=== PATIENT | male | born 1960 | race Caucasian/White ===

== ENCOUNTER 2018-01-01 10:00 | Inpatient (IN) | payer OTHER, MEDICARE, SELFPAY ==
[2017-12-19 12:53] VITALS: BMI 38.3
[2018-01-01] VITALS (17 sets, daily range): BP systolic 124–177; BP diastolic 75–114; PULSE 62–104; RESP 10–20; TEMP 36.3–37.4; O2SAT 91–97; BMI 36.8
--- NOTE | 2018-01-01 11:57 | PM.PREOP ---
Pre-operative Note Interval Note Pre-op Check: Yes History & Physical Reviewed by Physician, Yes Exam Performed and Yes History & Physical exam performed today by Physician Changes: No
[2018-01-01] MEDS: LACTATED RINGERS 1,000 ML 42 ML IV ×3 (12:18→15:40)
[2018-01-01] MEDS: MIDAZOLAM 2 MG/2 ML VIAL IV (12:29)
[2018-01-01] MEDS: fentaNYL 100 MCG/2 ML INJ 50 MCG IV (12:39)
[2018-01-01] MEDS: CEFAZOLIN 2 GM/100 ML FROZ.PIGGY IV ×2 (12:55→20:17)
--- NOTE | 2018-01-01 13:37 | SUR.OPER ---
Supine, head on gel donut. Arms padded with gel pads, tucked at sides, towel roll under shoulders. Safety belt at thigh. Legs uncrossed. tape placed to shoulders bilaterally and secured at foot of table on each side.
--- NOTE | 2018-01-01 15:51 | DI.RAD.S_ITS ---
PROCEDURE: XR CERVICAL SPINE 2V OR 3V INDICATIONS: C3-4-5-6 ACDF TECHNIQUE: 2 view(s) of the cervical spine were acquired. COMPARISON: None. FINDINGS: Bones: Immediate postprocedural evaluation after what appears to have been anterior discectomy and anterior fusion plating with bilateral transverse vertebral body cancellous screws crossing C3-C6 establishing normal alignment. Soft tissues: No prevertebral soft tissue swelling. IMPRESSION: Normal anatomic alignment established after anterior discectomy, interbody disc prosthesis placement, and anterior fusion plating from C3-C6. Dictated by: Huey Schaeffer M.D. on 01/01/2018 at 16:15 Approved by: Huey Schaeffer M.D. on 01/01/2018 at 16:16
[2018-01-01] MEDS: LORazepam 2 MG/ML SYRINGE 0.5 MG IV (15:55)
--- NOTE | 2018-01-01 16:04 | P.OP_ITS ---
Operative Date/Time/Diagnoses Date of procedure: 01/01/18 Time of procedure: 12:00 Pre-op diagnosis: 1. C3-4, C4-5, C5-6 spinal stenosis 2. C3-4, C4-5, C5-6 spondylosis with radiculopathy Post-op diagnosis: same Procedure & Clinicians Procedure: 1. C3-4, C4-5, C5-6 anterior cervical diskectomy and fusion 2. C3-4, C4-5, C5-6 anterior interbody cage placement 3. C3-4, C4-5, C5-6 anterior instrumentation with plate and screw placement in C4-C5-C6 and C7 vertebrae 4. Utilization of microsurgical technique and operating microscope Same procedure as scheduled: Yes Indications: Patient has been having chronic neck pain and worsening cervical radiculopathy. Patient failed multiple conservative management with worsening pain weakness and numbness in her upper extremity. Patient has been having difficulty performing activity of daily living. After discussing risks benefits of treatment options, patient elected proceed with surgery. Surgeon: Soraya Merchant [employer] Operator: Eliane Mendoza Click Yes if Unassisted: No Anesthesia Type: General Operative Notes Closure Type: primary Implants & Drains: Globus extend plate, PEEK cages Estimated Blood Loss (mL): 50 Blood products transfused: none Procedure in detail: Patient was seen in the preoperative area. Risks and benefits of the surgery was discussed with the patient. Operative consent was obtained and placed in the chart. Patient was then taken to the operative room. Prophylactic antibiotic was given less than 0.5 hr prior to skin incision. General anesthesia was administered. Patient was placed into a supine position on her radiolucent table. Bilateral shoulders were taped down to allow proper C-arm imaging. Anterior cervical area was prepped and draped in a sterile fashion. Time-out was performed at this time. Using lateral C-arm imaging, the level between C3 and C6 was identified and marked on patient's neck. A oblique incision from midline towards medial border of sternocleidomastoid muscle was made. The platysma muscle was incised in line with skin incision. Metzenbaum scissor was used to develop the plane between the medial border of sternocleidomastoid d and the strap muscles medially. The carotid sheath and its contents were identified and protected behind the hand- held retractor during the entire case. The plane between the carotid sheath and strap muscles was developed with Metzenbaum scissors. Dissection was made down to the level of the anterior cervical fascia. Longus colli muscle was incised on the anterior aspect of vertebral bodies bilaterally from C3-6. Spinal needle was placed into the C4-5 disc space and confirmed with lateral C-arm imaging. Using microsurgical technique and operative microscope, anterior cervical diskectomy was performed at C3-4, C4-5, C5-6 level. This was done by removing the disc material, removing the anterior and posterior osteophytes posterior longitudinal ligaments along with performing bilateral foraminotomies at all 3 levels. Patient was found to have severe central and foraminal stenosis at all 3 levels. Patient's stenosis was fully decompressed after decompression was completed. After the diskectomy was completed, 3 anterior interbody cages were obtained. The cages were packed with globus via cell bone grafting material. One cage each along with the bone grafting material was then packed into the interbody spaces from C3-6 with one cage into each interbody level. After the cages were placed, the anterior cervical plate was stabilized to the C3-4, C4-5, C5-6 vertebrae using 2 screws at each each level. Total 8 screws were placed. After confirming placement of the hardware with AP and lateral C- arm imaging, the screws were locked into the plate using the locking mechanism and torque limiting screwdriver. After the hardware was placed and confirmed with AP and lateral C-arm imaging, the wound was irrigated with sterile normal saline. The platysma muscle and the subcutaneous tissue was closed with 2-0 Vicryl. The skin was closed with 4- 0Monocryl and Steri-Strips. Patient tolerated the procedure well. Patient was transferred recovery room in stable condition. There were no complications. Complications: none Condition: stable Disposition: PACU Plan for aftercare: Admit to inpatient hospital
[2018-01-01] MEDS: HYDROMORPHONE 2 MG INJ 0.5 MG IV ×2 (16:10→16:22)
[2018-01-01] MEDS: LABETALOL 20 MG/4 ML SYRINGE 10 MG IV (16:33)
[2018-01-01] MEDS: SODIUM CHLORIDE 0.9% 1,000 ML 100 ML IV (17:20)
[2018-01-01] MEDS: HYDROMORPHONE 1 MG INJ 0.5 MG IV (17:21)
[2018-01-01] MEDS: OXYCODONE IR 5 MG TABLET 10 MG PO ×2 (18:38→22:37)
[2018-01-01] MEDS: ATORVASTATIN 10 MG TABLET PO (19:07)
[2018-01-01] MEDS: AMLODIPINE 5 MG TABLET PO (19:07)
[2018-01-01] MEDS: DOXAZOSIN 4 MG TABLET PO (19:08)
[2018-01-01] MEDS: DOCUSATE 100 MG CAPSULE PO (19:08)
[2018-01-01] MEDS: EPLERENONE 25 MG TABLET 100 MG PO (19:09)
[2018-01-01] MEDS: LISINOPRIL 20 MG TABLET 40 MG PO (19:09)
[2018-01-01] MEDS: SENNOSIDES 8.6 MG TABLET 17.2 MG PO (19:10)
[2018-01-02] MEDS: HYDROMORPHONE 1 MG INJ 0.5 MG IV ×3 (00:57→07:04)
[2018-01-02] MEDS: hydrOXYzine pamoate 25 MG CAPSULE PO ×3 (01:01→13:21)
[2018-01-02] MEDS: CEFAZOLIN 2 GM/100 ML FROZ.PIGGY IV (03:58)
[2018-01-02 04:01] VITALS: BP 156/87; PULSE 85; RESP 18; TEMP 36.9; O2SAT 94
--- NOTE | 2018-01-02 05:58 | PC.NURSE ---
Assumed care of pt from outgoing shift at 2300 8-27. Pt asleep at this time, belongings and call light within reach. will continue to monitor. 0030- pt awake, complains of pain, meds given. tolerated nursing assessments. uses call light. complains he cant fall asleep, Vistaril given as pt stated his neck and back muscles just felt so tight. pt stated he did get relief from this. PT turned phone on to use for white noise. Pt's questions answered. 0400- pt accidentally pulled out IV while toileting. new IV started, diluadid given. pt back to bed. will continue to monitor.
[2018-01-02 06:16] LABS: Hematocrit 41.5 % (41-53); Hemoglobin 14.2 g/dL (13.5-17.5)
--- NOTE | 2018-01-02 07:39 | PC.NURSE ---
Addendum entered by Sarah Mckenzie R.N. 01/02/18 09:30: Medicated (approx 0900) with Tylenol, Oxycodone and Vistaril for 6/10 neck pain. Patient wanted to try and sleep for a little bit. Resting quietly in bed now. Eyes closed, respirations regular and unlabored, CPAP in place. No s/sx distress or discomfort. Pain 0 on FLACC scale. Call light in reach. Original Note: Shift summary: Awake and alert, oriented X3. Up in room independently or with SBA, gait steady. Reports numbness/tingling in L fingers, but states this is actually improved compared to before surgery. Denies any other paresthesias. Dressing to anterior neck C/D/I, soft collar in place. Denies N/V or trouble swallowing. BT+, abdomen soft. Denies dysuria. Plan is to possibly d/c later today assuming things with therapy go well and pain is controlled with PO meds. Able to make needs known, call light in reach.
[2018-01-02 08:01] VITALS: BP 161/99; PULSE 86; RESP 16; TEMP 36.6; O2SAT 96
[2018-01-02] MEDS: DOCUSATE 100 MG CAPSULE PO (08:53)
[2018-01-02] MEDS: SODIUM CHLORIDE 0.9% FLUSH 10 ML IV (08:54)
[2018-01-02] MEDS: ACETAMINOPHEN 325 MG TABLET 650 MG PO ×2 (08:54→13:21)
[2018-01-02] MEDS: OXYCODONE IR 5 MG TABLET 10 MG PO ×2 (08:59→11:52)
--- NOTE | 2018-01-02 10:55 | PT.IIE ---
Current Diagnoses Other spondylosis with radiculopathy, cervical region (01/01/18) Spinal stenosis, cervical region (01/01/18) Postlaminectomy syndrome, not elsewhere classified (01/01/18) Surgery Performed Operation Date: 01/01/18 12:45 Actual Procedures p C3-4, C4-5, C5-6 ACDF w/Anterior Instru.(Not Applicable) - Soraya Merchant MD Surgical History (Last Updated 12/19/17 @ 15:09 by Brandi Loza RN) History of arthroscopy of left shoulder (Acute) History of carpal tunnel surgery of left wrist (Acute) Hx of laminectomy (Acute) Hx of shoulder surgery (Acute) Hx of sinus surgery (Acute) Medical History (Last Updated 12/19/17 @ 13:38 by Brandi Loza RN) Arthritis (Acute) Chronic chest pain (Acute) DJD (degenerative joint disease) of cervical spine (Acute) Depression (Acute) HTN (hypertension) (Acute) Hyperlipidemia (Acute) Pain (Acute) Palpitations (Acute) Prostate cancer (Acute) Sleep apnea with use of continuous positive airway pressure (CPAP) (Acute) Physical Therapy Inpatient Evaluation/Re-Eval Subjective Physical Therapy Visit Type Type Initial Evaluation Visit Start Time 09:15 Visit Stop Time 09:35 Total Visit Minutes 20 Physical Therapy Visit Comments Patient Comments Pt reports doing well, has no concerns about his mobility or ADLs once he's out of the hospital. Would really like some exercises to do. Therapy Pain Assessment Pain When Pain Assessed At Rest Pain Present Pain Present Denied Pain PT-Bed Mobility Assessment Supine to Sit Supine to Sit Standby Assistance Sit to Supine Sit to Supine Independent PT-Transfer Assessment Sit to and From Stand Sit to and from Stand Independent Equipment Transfer Assistive Device None Transfer Ability Level of Assist Independent Gait Assessment Gait Gait Assistance Required: Independent Distance (Feet) (feet) 200 Assistive Devices Assistive Device None Gait Deviations General Gait Pattern Within Normal Limits Stair Climbing Assessment Evaluation Level of Assist On Stairs Independent PT-Balance Assessment Sitting Balance and Reactions Static Sitting Balance Ability Normal Dynamic Sitting Balance Ability Normal Standing Balance and Reactions Static Standing Balance Ability Normal Dynamic Standing Balance Ability Normal Device Used none Orientation Orientation/Cognition Level of Alertness Alert Orientation Name Age Birthday Month Date Year Day of Week Place Situation Language Function Ability No Deficits Noted Safety Awareness Understands Safety Issues Memory Description No Deficits Noted Gross Range of Motion Upper Extremity ROM Assessment Within Functional Limits Lower Extremity ROM Assessment Within Functional Limits Strength Upper Extremity Strength Assessment Within Functional Limits Lower Extremity Strength Assessment Within Functional Limits Physical Therapy Treatment Education Education Provided Safety PT Summary Assessment and Plan Potential Rehabilitation Potential Excellent Status of Condition at Evaluation Stable Summary Progress Towards Goals Safe For Discharge Assessment Summary Pt is independent with his mobility and demonstrates full understanding of his precautions regarding his neck . Pt is safe to discharge home and will benefit from participation in outpatient PT for cervical stabilization. Otherwise pt has no other acute PT goals/needs, will sign off. Frequency of Treatment Frequency Of Treatment Discharge Recommendations To Nursing Amount of Assist Needed Independent Discharge Recommendations PT Discharge Recommendations Home Outpatient PT
--- NOTE | 2018-01-02 12:26 | P.DS_ITS ---
History of Present Illness Date Patient Seen: 01/02/18 Time Patient Seen: 07:20 Chief complaint: c3-4 c4-5 c5-6 acdf w/anterior instrumentation Narrative: s/p acdf Discharge Providers Date of admission: 01/01/18 10:00 Primary care physician: Yas Cobian PA-C Consults: 01/01/18 17:05 Consult to Occupational Therapy Evaluate & Treat Comment: Physician Instructions: Evaluate and treat Consult to Physical Therapy Evaluate & Treat Comment: Physician Instructions: Evaluate and Treat Discharge provider: Raegan Cruz PA-C Summary Discharge Diagnosis: s/p acdf spinal stenosis Hospital Course: Ron was admitted for C3-4, C4-5, and C5-[address] Merchant , and he consented to procedure. On POD #1 he was feeling well and wanted to go home. He was up and ambulating with PT. His pain was well controlled with oxycodone and vistaril. Status at Discharge Functional status at discharge: independent ambulation Exam Vital Signs (past 8 hours): - 01/02/18 08:01 Temperature 98 F Pulse Rate 86 Respiratory Rate 16 Blood Pressure 161/99 H Pulse Oximetry 96 Oxygen Delivery Method Room Air Oxygen Flow Rate 0 Narrative Exam Narrative: Patient sitting up in bed in NAD. He is alert and oriented X3. Dressing on anterior neck is CDI. Wearing soft collar for comfort. Supervisory Investigative Specialist strength strong and equal. SILT throughout BUEs. Pain is well controlled this AM. He has been ambulating. No difficulty voiding or swallowing. Objective Labs Result Diagrams: 01/02/18 06:03 Labs: Laboratory Results - last 24 hr 01/02/18 06:03 Hgb 14.2 Hct 41.5 Discharge Plan Discharge Plan Patient Disposition: Home Discharge comment: DC home today with Discharge Med Rec/Prescriptions Prescriptions: New acetaminophen 325 mg Tablet 650 mg PO Q6HR PRN (Reason: Pain, Mild (1-3)) Qty: 20 RF: 0 docusate sodium 100 mg Capsule 100 mg PO BID Qty: 30 RF: 0 hydroxyzine pamoate 25 mg Capsule 25 mg PO Q6HR Qty: 60 RF: 0 oxycodone 5 mg capsule 5 mg PO Q4-6H PRN (Reason: pain) Qty: 60 RF: 0 Continue atorvastatin 10 mg Tablet 10 mg PO BEDTIME RF: 0 aspirin 325 mg Tablet 325 mg PO DAILY RF: 0 amlodipine 5 mg Tablet 5 mg PO BEDTIME RF: 0 lisinopril 40 mg Tablet 40 mg PO BEDTIME RF: 0 doxazosin 8 mg Tablet Extended Release 24hr 4 mg PO BEDTIME RF: 0 tramadol 50 mg Tablet 50 mg PO Q12H PRN (Reason: pain) RF: 0 eplerenone 50 mg Tablet 100 mg PO BEDTIME RF: 0 gabapentin 300 mg Capsule 300 mg PO TID PRN (Reason: pain) RF: 0 Follow up/Referrals: Yas Cobian PA-C [Primary Care Provider] - Soraya Merchant MD [Physician] - (Follow-up in 10-14 days with [facility] at [facility]) Provider Discharge Instructions Diet: Regular Activity: No excessive bending, lifting, or twisting Cold/Heat Therapy: As needed Skin/Wound/Dressing Care Report to your healthcare provider any signs of infection, such as:: chills, fever and increased pain Dressing: Please leave dressing in place until appointment Visit Report/Discharge Packet Instructions: DI for Anterior Cervical Discectomy and Fusion, Oxycodone, Hydroxyzine Visit Report Forms: Stroke Signs & Symptoms Discharge Data Primary Care Provider: Yas Cobian Attending Provider: Soraya Merchant Admit Date/Time: 01/01/18 10:00
== END 2018-01-02 14:00 | disposition home or self-care (01) | DRG 473 ==
PROVIDERS: Admitting Provider Orthopaedic Surgery Orthopaedic Surgery of the Spine; PCP Physician Assistant Medical; Visit Provider Orthopaedic Surgery Orthopaedic Surgery of the Spine
PROC: 0RG20A0 Fusion of 2 or more Cervical Vertebral Joints with Interbody Fusion Device, Anterior Approach, Anterior Column, Open Approach (ICD-10-PCS; principal; 2018-01-01 12:45)
DX: M48.02 Spinal stenosis, cervical region (principal); M19.011 Primary osteoarthritis, right shoulder; G47.33 Obstructive sleep apnea (adult) (pediatric); I10 Essential (primary) hypertension; E78.5 Hyperlipidemia, unspecified; F32.9 Major depressive disorder, single episode, unspecified; E66.9 Obesity, unspecified; Z68.36 Body mass index [BMI] 36.0-36.9, adult
CPT/HCPCS: 36415; 72040; 76001; 85014; 85018; 97161; C1776; J0690; J1100; J1170; J2060; J2250; J2405; J2704; J3010